=== PATIENT | male | born 1985 | race African-American/Black ===

== ENCOUNTER 2016-09-13 22:15 | Emergency (ER) | payer SELFPAY ==
[~2016-09-13] VITALS: Ht 180.3 cm; Wt 106.2 kg
[~2016-09-13 22:15] MED LIST: AMOX875 PO; CIPRHC10A RIGHT EAR
[2016-09-13 22:20] VITALS: BP 143/75; PULSE 87; RESP 20; TEMP 98.3; O2SAT 96
[2016-09-13] MEDS ORDERED: CIPR0.2S RIGHT EAR (22:47)
--- NOTE | 2016-09-13 22:47 | PD ---
HPI Chief Complaint: ENT Complaint Time Seen by Provider: 22:42 Travel History International Travel<30 days: No Contact w/Intl Traveler<30days: No Traveled to known affect area: No History of Present Illness HPI 31-year-old male presents emergency department for evaluation of right ear pain and discharge 3 days. Patient reports symptoms began with ear pain and then he developed drainage. He describes the drainage is yellowish in color. He reports similar symptoms with previous ear infections. He denies fever, chills , headache. He reports pain was in the right ear, nonradiating, constant, severity 4 out of 10. PFSH Past Medical History Medical History: Denies Significant Hx Diminished Hearing: No Immunizations Current: No Tetanus Vaccination: Unknown Influenza Vaccination: No ?: Not Past Surgical History Other Surgery: Yes (lasik) Social History Alcohol Use: Yes (SOCIAL) Tobacco Use: Yes (1 PPD) Substance Use: No Allergies-Medications (Allergen,Severity, Reaction): Coded Allergies: No Known Allergies (Unverified , 08/14/15) Reported Meds & Prescriptions Reported Meds & Active Scripts Active Ciprofloxacin Otic Drops 0.2% Soln 0.25 Ml RIGHT EAR BID Amoxicillin 875 Mg Tab 875 Mg PO BID Cipro Hc Otic Susp (Ciprofloxacin/Hydrocortisone) 10 Ml Susp 3 Drop RIGHT EAR BID 7 Days Review of Systems Except as stated in HPI: all other systems reviewed are Neg Physical Exam Narrative GENERAL: Well-nourished, well-developed patient. SKIN: Focused skin assessment warm/dry. HEAD: Normocephalic. EYES: No scleral icterus. No injection or drainage. EARS: Right ear: Mild swelling within the canal and yellow discharge present. TM partially obscured by the discharge. No mastoid tenderness. NECK: Supple, trachea midline. No JVD or lymphadenopathy. CARDIOVASCULAR: Regular rate and rhythm without murmurs, gallops, or rubs. RESPIRATORY: Breath sounds equal bilaterally. No accessory muscle use. GASTROINTESTINAL: Abdomen soft, non-tender, nondistended. MUSCULOSKELETAL: No cyanosis, or edema. BACK: Nontender without obvious deformity. No CVA tenderness. Data Data Last Documented VS Vital Signs Date Time Temp Pulse Resp B/P Pulse Ox O2 Delivery O2 Flow Rate FiO2 09/13/16 22:20 98.3 87 20 143/75 96 MDM Medical Decision Making Medical Screen Exam Complete: Yes Emergency Medical Condition: Yes Differential Diagnosis Otitis external, otitis media, otitis media and perforation Narrative Course 31-year-old male presents emergency department for evaluation of right ear pain treatments 3 days. On exam patient has mild canal swelling with yellow exudate. Patient will be treated for otitis externa. Diagnosis Primary Impression: Otitis externa Qualified Code: H60.501 - Acute otitis externa of right ear, unspecified type Referrals: Primary Care Physician Scripts Ofloxacin Otic (Floxin Otic)0.3 % Sol5 Drop RIGHT EAR BID 7 Days Prov:Nella Galvan 09/13/16 Disposition: 01 DISCHARGE HOME Condition: Stable Nella Galvan Sep 13, 2016 22:47
[2016-09-13] MEDS ORDERED: OFLO1SOL RIGHT EAR (22:49)
== END 2016-09-13 22:50 | disposition home or self-care (01) ==
LOC: PHEFT 22:15
DX: H60.501 Unspecified acute noninfective otitis externa, right ear (principal); F17.200 Nicotine dependence, unspecified, uncomplicated
CPT/HCPCS: 99283